=== PATIENT | male | born 1945 | race Caucasian/White ===

== ENCOUNTER 2016-09-21 10:46 | Emergency (ER) | payer MEDICARE, OTHER ==
[2016-09-21 11:25] VITALS: BP 120/70
[2016-09-21] MEDS ORDERED: Alum Hydrox/Mag Hydrox/Simeth 30 ML, Lidocaine 2% 15 ML PO ONE ×2 (12:02)
[2016-09-21 12:13] LABS: CHLORIDE,CL 103 mEq/L (98-106); SODIUM,NA 139 mEq/L (136-145)
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
== END 2016-09-21 13:05 | disposition home or self-care (01) ==
LOC: CC.ED 10:46
DX: K21.9 Gastro-esophageal reflux disease without esophagitis (principal); K44.9 Diaphragmatic hernia without obstruction or gangrene; I25.2 Old myocardial infarction; Z95.5 Presence of coronary angioplasty implant and graft; Z95.0 Presence of cardiac pacemaker; Z79.82 Long term (current) use of aspirin; Z79.899 Other long term (current) drug therapy; Z88.0 Allergy status to penicillin
CPT/HCPCS: 36415; 71020; 80048; 81001; 82550; 83615; 83880; 84484; 85025; 86140; 93005; 99285; A9270; 93010

== ENCOUNTER → 2018-08-01 | Day surgery (SDC) | payer MEDICARE, OTHER ==
[~2018-08-01] MED LIST: Propofol 200 MG/20 ML SDV IV ONE
[2018-08-01] MEDS: Lactated Ringers 1,000 ML IV SCH (06:50)
[2018-08-01 08:37] VITALS: BP 103/54
--- NOTE | 2018-08-01 12:06 | OR ---
DATE OF OPERATION: 08/01/2018 PREOPERATIVE DIAGNOSIS: POSITIVE COLOGUARD. POSTOPERATIVE DIAGNOSIS: POSITIVE COLOGUARD. SURGEON: Diony Kumar MD PROCEDURE: DIAGNOSTIC COLONOSCOPY WITH FORCEPS POLYP REMOVAL X2. ANESTHESIA: MAC via SCRAP CHARGER. COMPLICATIONS: None. SPECIMEN: Sessile polyps x2, each 3 mm. FINDINGS: 1. Full-length colonoscopy. 2. Mild sigmoid diverticulosis. 3. Two small sessile polyps. RECOMMENDATIONS: Followup colonoscopy in 5 years. INDICATIONS: The patient had a prior colonoscopy in 2010, declined to have followups for prior polyp removal. He came in and had a positive Cologuard. We proceeded with diagnostic colonoscopy. DESCRIPTION OF PROCEDURE: The patient was prepped and draped, placed in left lateral decubitus position. A lubricated Olympus colonoscope was inserted and easily advanced to the cecum. Direct visualization of the ileocecal valve and appendiceal orifice was accomplished. The bowel prep was adequate. Upon withdrawal of the scope, the cecum appeared benign. Just outside the cecum and the proximal ascending colon, the patient had a small flat sessile polyp approximately 3 mm in size, removed in its entirety with cold forceps. The rest of the ascending and transverse colon were benign. In the sigmoid area, the patient had some scattered diverticular disease to the rectosigmoid junction, mild in severity. Likewise, the descending colon was evaluated thoroughly. At the splenic flexure, there was a 2nd small sessile polyp also approximately 3 mm in size removed with a cold forceps. The rest of the descending colon was benign. The sigmoid colon had scattered diverticula mild in severity to the rectosigmoid junction. No other polyps, masses, ulceration, or bleeding sites were seen. The rectal vault was benign. Retroflexion of the scope in the rectum showed no perianal lesions. Air was suctioned, scope removed without complication. DEA/ZOEY /[id number]
== END ==
LOC: CC.SDS 06:30
PROVIDERS: ATTEND Family Medicine
DX: D12.2 Benign neoplasm of ascending colon (principal); D12.3 Benign neoplasm of transverse colon; K57.30 Diverticulosis of large intestine without perforation or abscess without bleeding; R19.5 Other fecal abnormalities; E11.9 Type 2 diabetes mellitus without complications; I25.5 Ischemic cardiomyopathy; I10 Essential (primary) hypertension; E03.9 Hypothyroidism, unspecified; E78.5 Hyperlipidemia, unspecified; K21.9 Gastro-esophageal reflux disease without esophagitis; N40.0 Benign prostatic hyperplasia without lower urinary tract symptoms; G47.30 Sleep apnea, unspecified; Z88.0 Allergy status to penicillin; Z79.82 Long term (current) use of aspirin; Z79.84 Long term (current) use of oral hypoglycemic drugs; Z79.899 Other long term (current) drug therapy
CPT/HCPCS: 45380; J2704; J7120

== ENCOUNTER 2019-04-29 10:05 | Observation (INO) | payer MEDICARE, OTHER ==
[2019-04-29] MEDS ORDERED: Nitroglycerin 0.4 MG Tab.SL SL PRN (10:13)
[2019-04-29 10:46] LABS: CHLORIDE,CL 102 mEq/L (98-106); SODIUM,NA 136 mEq/L (136-145)
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
[2019-04-29] MEDS ORDERED: Ondansetron 4 MG/2 ML SDV IVPUSH PRN (11:45)
[2019-04-29] MEDS ORDERED: Sodium Chloride 0.9% 10 ML Syringe FLUSH PRN (11:45)
[2019-04-29] MEDS ORDERED: Enoxaparin 40 MG/0.4 ML Syringe SUBCUT SCH (14:00)
[2019-04-29] MEDS: Gabapentin 100 MG Cap PO SCH ×2 (14:22→19:45)
[2019-04-29] MEDS: Carvedilol 6.25 MG Tab PO SCH (17:10)
[2019-04-29] MEDS ORDERED: Tamsulosin 0.4 MG Cap.ER PO SCH (18:00)
[2019-04-29] MEDS ORDERED: atorvaSTATin 10 MG Tab PO SCH (20:00)
[2019-04-29] MEDS ORDERED: Temazepam 15 MG Cap PO PRN (20:00)
[2019-04-29] MEDS ORDERED: metFORMIN 500 MG Tab.ER PO SCH (20:00)
[2019-04-30] MEDS ORDERED: Levothyroxine 50 MCG Tab PO SCH (07:00)
[2019-04-30] MEDS ORDERED: Pantoprazole 40 MG Tab.CR PO SCH (07:30)
[2019-04-30 07:37] LABS: CHLORIDE,CL 102 mEq/L (98-106); SODIUM,NA 137 mEq/L (136-145)
[2019-04-30] MEDS: Carvedilol 6.25 MG Tab PO SCH (07:53)
[2019-04-30] MEDS: Gabapentin 100 MG Cap PO SCH (07:59)
[2019-04-30 08:00] VITALS: BP 125/64; PULSE 64
[2019-04-30] MEDS ORDERED: Aspirin 81 MG Tab.EC PO SCH (08:00)
[2019-04-30] MEDS ORDERED: metFORMIN 500 MG Tab.ER PO SCH (08:00)
[2019-04-30] MEDS ORDERED: Furosemide 20 MG Tab PO SCH (08:00)
[2019-04-30] MEDS ORDERED: Amiodarone 200 MG Tab PO SCH (08:00)
[2019-04-30] MEDS ORDERED: TOLTERODINE TARTRATE 4 MG PO SCH (08:00)
--- NOTE | 2019-04-30 21:51 | PCM.DCSUM1 ---
Discharge Summary - Hospital Course Free Text/Narrative:: Bernardino is a 74 year old male who presents to ER with complaints of dizziness, balance issues. Awoke this am and felt he was leaning to the left, balance off , difficult to walk. He felt very dizzy. Did have emesis approximately 30 minutes later. No notable weakness in arms or legs, felt to have slurred speech but family did not note a difference as states normal for him due to his long standing hearing loss and cochlear implant. Neurological exam in ER otherwise normal. CT scan of head was done, negative for acute concern. Labs stable. Troponin negative. Admitted for neurological monitoring, rule out CVA/ TIA. Diagnosis: Stroke: No Modified [place] Scale: No Symptoms at All Modified [place] Scale Score: 0 - Discharge Data Discharge Date: 04/30/19 Discharge Disposition: Home, Self-Care 01 Condition: Stable - Referral to Home Health Primary Care Physician: Diony Kumar MD - Patient Summary/Data Complications: none Hospital Course: Patient is doing well. Denies dizziness this am. Is ambulating well without balance issues today. Had previously been to the chiropractor, had head manipulation and canalith repositioning. No nausea or vomiting. No headache. Labs have remained normal. Neuro checks all normal. Discharge home. Follow up with Dr. Kumar in a week - Patient Instructions Diet: Usual Diet as Tolerated Activity: As Tolerated - Discharge Plan *PRESCRIPTION DRUG MONITORING PROGRAM REVIEWED*: No *COPY OF PRESCRIPTION DRUG MONITORING REPORT IN PATIENT JAGJIT: No Home Medications: Home Meds Amiodarone [Pacerone] 100 mg PO DAILY 10/06/14 [History] Tamsulosin [Flomax] 0.4 mg PO DAILY 10/06/14 [History] Tolterodine Tartrate [Detrol LA] 4 mg PO DAILY 10/06/14 [History] atorvaSTATin [Lipitor] 10 mg PO BEDTIME 10/06/14 [History] carvediloL [Carvedilol] 6.25 mg PO BID 10/06/14 [History] Aspirin [Adult Low Dose Aspirin EC] 162 mg PO DAILY 10/07/14 [History] Furosemide 20 mg PO DAILY 10/07/14 [History] Levothyroxine Sodium [Levoxyl] 50 mcg PO DAILY 05/15/16 [History] Temazepam 15 mg PO DAILY PRN 05/15/16 [History] Gabapentin [Neurontin] 100 mg PO TID 07/29/18 [History] metFORMIN HCl [Metformin HCl ER] 500 mg PO DAILY 07/29/18 [History] Pantoprazole Sodium 40 mg PO DAILY 04/29/19 [History] Patient Handouts: Carbohydrate Counting for Diabetes Mellitus, Adult, Dizziness Forms: ED Department Discharge Referrals: Diony Kumar MD [Primary Care Provider] - (Follow up with Dr. Kumar in one week) - Discharge Summary/Plan Comment DC Time >30 min.: No - General Info Date of Service: 04/30/19 Functional Status: Reports: Pain Controlled, Tolerating Diet, Ambulating - Review of Systems General: Denies: Fever, Weakness, Fatigue, Malaise HEENT: Denies: Sinus Congestion Pulmonary: Denies: Shortness of Breath, Cough Cardiovascular: Denies: Chest Pain, Edema, Lightheadedness Gastrointestinal: Denies: Abdominal Pain, Nausea, Vomiting Genitourinary: Reports: No Symptoms Musculoskeletal: Reports: No Symptoms Skin: Reports: No Symptoms Neurological: Denies: Dizziness - Patient Data Vitals - Most Recent: Last Vital Signs Temp 98.4 F 04/30/19 08:00 Pulse 64 04/30/19 08:00 Resp 16 04/30/19 08:00 BP 125/64 04/30/19 08:00 Pulse Ox 97 04/30/19 08:00 Weight - Most Recent: 238 lb Lab Results - Last 24 hrs: Laboratory Results - last 24 hr 04/30/19 04/30/19 Range/Units 06:45 06:45 WBC 5.9 (5.0-10.0) 10^3/uL RBC 4.79 (4.50-6.00) 10^6/uL Hgb 14.2 (14.0-18.0) g/dL Hct 43.9 (40.0-54.0) % MCV 91.6 (82.0-94.0) fL MCH 29.6 (27.0-32.0) pg MCHC 32.3 L (33.0-38.0) g/dL RDW Coeff of Esther 13.5 (11.0-15.0) % Plt Count 127 L (150-400) 10^3/uL Neut % (Auto) 71.8 (35-85) % Lymph % (Auto) 14.9 (10-55) % Anderson % (Auto) 9.6 (0-16) % Eos % (Auto) 3.2 (0-5) % Baso % (Auto) 0.5 (0-3) % Neut # (Auto) 4.25 (1.80-7.00) 10^3/uL Lymph # (Auto) 0.88 L (1.00-4.80) 10^3/uL Anderson # (Auto) 0.57 (0.00-0.80) 10^3/uL Eos # (Auto) 0.19 (0.00-0.45) 10^3/uL Baso # (Auto) 0.03 10^3/uL Sodium 137 (136-145) mEq/L Potassium 4.1 (3.5-5.0) mEq/L Chloride 102 (98-106) mEq/L Carbon Dioxide 28 (21-32) mmol/L BUN 19 H (7-18) mg/dL Creatinine 1.2 (0.7-1.3) mg/dL Est Cr Clr Drug Dosing 53.19 mL/min Estimated GFR (MDRD) 59 L (>=60) mL/min Glucose 153 H (75-99) mg/dL Calcium 8.5 (8.4-10.1) mg/dL Troponin I < 0.017 (0.00-0.06) ng/mL Med Orders - Current: Current Medications Discontinued Medications Amiodarone HCl (Cordarone) 100 mg PO DAILY [facility] Last Admin: 04/30/19 07:51 Dose: 100 mg Aspirin (Halfprin) 162 mg PO DAILY [facility] Last Admin: 04/30/19 07:59 Dose: 162 mg Atorvastatin Calcium (Lipitor) 10 mg PO BEDTIME [facility] Last Admin: 04/29/19 19:40 Dose: 10 mg Carvedilol (Coreg) 6.25 mg PO BIDMEALS [facility] Last Admin: 04/30/19 07:53 Dose: 6.25 mg Enoxaparin Sodium (Lovenox) 40 mg SUBCUT Q24H [facility] Last Admin: 04/29/19 13:41 Dose: 40 mg Furosemide (Lasix) 20 mg PO DAILY [facility] Last Admin: 04/30/19 07:52 Dose: 20 mg Gabapentin (Neurontin) 100 mg PO TID [facility] Last Admin: 04/30/19 07:59 Dose: 100 mg Levothyroxine Sodium (Synthroid) 50 mcg PO DAILY@0700 [facility] Last Admin: 04/30/19 06:28 Dose: 50 mcg Metformin HCl (Glucophage Xr) 500 mg PO DAILY [facility] Metformin HCl (Glucophage Xr) 500 mg PO BEDTIME [facility] Last Admin: 04/29/19 20:00 Dose: 500 mg Nitroglycerin (Nitrostat) 0.4 mg SL Q5M PRN PRN Reason: Chest Pain Tolterodine Tartrate [Detrol La] 4 Mg Cap 0 mg PO DAILY [facility] Last Admin: 04/30/19 07:51 Dose: 4 mg Ondansetron HCl (Zofran) 4 mg IVPUSH Q4H PRN PRN Reason: Nausea/Vomiting Pantoprazole Sodium (Protonix) 40 mg PO DAILY@0730 [facility] Last Admin: 04/30/19 06:30 Dose: 40 mg Sodium Chloride (Saline Flush) 10 ml FLUSH ASDIRECTED PRN PRN Reason: Keep Vein Open Tamsulosin HCl (Flomax) 0.4 mg PO PCDINNER [facility] Last Admin: 04/29/19 17:09 Dose: 0.4 mg Temazepam (Restoril) 15 mg PO BEDTIME PRN PRN Reason: Insomnia - Exam General: Reports: Alert, Oriented HEENT: Reports: Mucous Membr. Moist/[place] Neck: Reports: Supple Lungs: Reports: Clear to Auscultation, Normal Respiratory Effort Cardiovascular: Reports: Regular Rate, Regular Rhythm GI/Abdominal Exam: Normal Bowel Sounds, Soft, Non-Tender Extremities: Normal Inspection, No Pedal Edema Skin: Reports: Warm, Dry Neurological: Reports: No New Focal Deficit
== END 2019-04-30 08:30 | disposition home or self-care (01) ==
LOC: CC.ED 10:05 → INTOOBSV 11:14 → CC.MS 11:14 → OBSVTOIN 11:14 → CC.MS 11:15 → UNDOADMOB 11:15
PROVIDERS: ADMIT Physician Assistant Medical; ATTEND Family Medicine
DX: R42 Dizziness and giddiness (principal); R26.89 Other abnormalities of gait and mobility; R11.10 Vomiting, unspecified; E11.9 Type 2 diabetes mellitus without complications; Z88.0 Allergy status to penicillin; Z79.82 Long term (current) use of aspirin; Z79.84 Long term (current) use of oral hypoglycemic drugs; Z79.899 Other long term (current) drug therapy
CPT/HCPCS: 36415; 70450; 71046; 80048; 80053; 82550; 83615; 83690; 84484; 85025; 85610; 85730; 93005; 96372; 99285-25; A9270-GY; G0378; J1650

== ENCOUNTER 2021-12-09 10:28 | Emergency (ER) | payer MEDICARE, OTHER ==
[2021-12-09 10:31] VITALS: BP 121/62; PULSE 70
== END 2021-12-09 10:52 | disposition home or self-care (01) ==
LOC: CC.ED 10:28
DX: J06.9 Acute upper respiratory infection, unspecified (principal); E11.9 Type 2 diabetes mellitus without complications; I25.2 Old myocardial infarction; Z95.0 Presence of cardiac pacemaker; Z79.82 Long term (current) use of aspirin; Z79.84 Long term (current) use of oral hypoglycemic drugs; Z79.899 Other long term (current) drug therapy
CPT/HCPCS: 99283

== ENCOUNTER 2023-07-26 06:40 | Day surgery (SDC) | payer MEDICARE, OTHER ==
[2023-07-26] MEDS: Lactated Ringers 1,000 ML IV SCH (07:02)
[2023-07-26] MEDS ORDERED: fentaNYL 50 MCG/ML SDV ONE (07:25)
[2023-07-26] MEDS ORDERED: Ketamine 200 MG/20 ML MDV ONE (07:25)
[2023-07-26] MEDS ORDERED: Etomidate 2 MG/ML 10 ML SDV ONE (07:25)
[2023-07-26] MEDS ORDERED: Propofol 200 MG/20 ML SDV ONE (07:25)
[2023-07-26] MEDS ORDERED: Midazolam 1 MG/ML 2 ML SDV ONE (07:25)
[2023-07-26 08:46] VITALS: BP 114/59; PULSE 61
== END 2023-07-26 08:45 | disposition home or self-care (01) ==
LOC: CC.SDS 06:40
PROVIDERS: ATTEND Family Medicine
DX: K57.30 Diverticulosis of large intestine without perforation or abscess without bleeding (principal); K64.8 Other hemorrhoids; E11.9 Type 2 diabetes mellitus without complications; K21.9 Gastro-esophageal reflux disease without esophagitis; E78.00 Pure hypercholesterolemia, unspecified; N40.1 Benign prostatic hyperplasia with lower urinary tract symptoms; E03.9 Hypothyroidism, unspecified; R35.1 Nocturia; I25.5 Ischemic cardiomyopathy; G47.30 Sleep apnea, unspecified; Z79.82 Long term (current) use of aspirin; Z79.890 Hormone replacement therapy; Z79.84 Long term (current) use of oral hypoglycemic drugs; Z79.899 Other long term (current) drug therapy
CPT/HCPCS: 45378; J7120; 00811; 99100; J2250; J2704; J3010; J3490

== ENCOUNTER 2023-08-27 21:38 | Observation (INO) | payer MEDICARE, OTHER ==
[2023-08-27 20:43] LABS: BASOPHILS ABSOLUTE AUTO 0.02 10^3/uL (0.00-0.50); BASOPHILS PERCENT AUTO 0.3 % (0-1); EOSINOPHILS ABSOLUTE AUTO 0.24 10^3/uL (0.00-1.50); EOSINOPHILS PERCENT AUTO 3.9 % (0-6); HEMOGLOBIN 14.5 g/dL (14.0-18.0); IMMATURE GRAN ABSOLUTE AUTO 0.02 10^3/uL (0.00-0.49); IMMATURE GRAN PERCENT AUTO 0.3 % (0.0-4.9); LYMPHOCYTES ABSOLUTE AUTO 0.67 10^3/uL (0.60-5.00); LYMPHOCYTES PERCENT AUTO 10.8 % (24-44); MEAN CORPUSCULAR HEMOGLOBIN 30.1 pg (27.0-32.0); MEAN CORPUSCULAR HGB CONC 32.2 g/dL (32.0-36.0); MEAN CORPUSCULAR VOLUME 93.4 fL (83.0-97.0); MONOCYTES ABSOLUTE AUTO 0.48 10^3/uL (0.00-1.50); MONOCYTES PERCENT AUTO 7.7 % (0-10); NEUTROPHILS ABSOLUTE AUTO 4.79 x10^3/uL (1.80-8.00); PLATELET COUNT,PLT 106 10^3/uL (150-400); RED BLOOD CELL COUNT 4.82 x10^6/uL (4.50-6.00); WHITE BLOOD CELL COUNT,WBC 6.2 10^3/uL (4.0-11.0)
[2023-08-27] MEDS: Sodium Chloride 0.9% 1,000 ML IV SCH (20:44)
[2023-08-27 20:56] LABS: ALANINE AMINOTRANSFERASE,ALT 19 U/L (12-78); ALBUMIN 3.7 g/dL (3.4-5.0); ALKALINE PHOSPHATASE 86 U/L (46-116); ASPARTATE AMNIOTRANSFERASE,AST 20 U/L (15-37); BILIRUBIN TOTAL 0.5 mg/dL (0.0-1.0); BLOOD UREA NITROGEN,BUN 30 mg/dL (7-18); CALCIUM 8.7 mg/dL (8.4-10.1); CARBON DIOXIDE,CO2 28 mmol/L (21-32); CHLORIDE,CL 102 mEq/L (98-106); CREATININE 1.7 mg/dL (0.7-1.3); GLUCOSE RANDOM 203 mg/dL (75-99); LIPASE 46 U/L (16-77); POTASSIUM,K 4.3 mEq/L (3.5-5.0); PROTEIN TOTAL,TP 6.7 g/dL (6.4-8.2); SODIUM,NA 140 mEq/L (136-145)
[2023-08-27 20:57] LABS: ESTIMATED GFR 41 mL/min (>=60)
[2023-08-27] MEDS ORDERED: Ondansetron 4 MG Tab.DIS PO PRN (22:36)
[2023-08-27] MEDS ORDERED: Non-Formulary Medication 1 Each (Cetirizine [Zyrtec] 10 MG Tablet) PO PRN (22:36)
[2023-08-27] MEDS ORDERED: Ondansetron 4 MG/2 ML SDV IV PRN (22:36)
[2023-08-27] MEDS ORDERED: Temazepam 15 MG Cap PO PRN ×2 (22:36→23:18)
[2023-08-27] MEDS ORDERED: Loratadine 10 MG Tab PO PRN (23:09)
[2023-08-27] MEDS: Meclizine 12.5 MG Tab PO SCH (23:19)
[2023-08-28] MEDS: ACETAMINOPHEN 650 MG PO SCH (00:18)
[2023-08-28] MEDS: Sodium Chloride 0.9% 1,000 ML IV SCH (01:20)
[2023-08-28] MEDS: Pantoprazole 40 MG Tab.CR PO SCH (06:07)
[2023-08-28 06:54] LABS: APPEARANCE,URINE CLEAR (CLEAR); BILIRUBIN,URINE NEGATIVE (NEGATIVE); COLOR,URINE YELLOW (YELLOW); GLUCOSE,URINE 500 mg/dL (NEGATIVE); KETONES,URINE NEGATIVE (NEGATIVE); LEUKOCYTE ESTERASE,URINE NEGATIVE (NEGATIVE); NITRITE,URINE NEGATIVE (NEGATIVE); OCCULT BLOOD,URINE NEGATIVE (NEGATIVE); PROTEIN,URINE NEGATIVE (NEGATIVE); UROBILINOGEN,URINE 0.2 EU/dL (0.2-1.0)
[2023-08-28] MEDS: Amiodarone 200 MG Tab PO SCH (07:28)
[2023-08-28] MEDS: Trospium 20 MG Tab PO SCH (07:29)
[2023-08-28] MEDS: Carvedilol 6.25 MG Tab PO SCH (07:30)
[2023-08-28] MEDS: atorvaSTATin 10 MG Tab PO SCH (07:31)
[2023-08-28] MEDS: Furosemide 20 MG Tab PO SCH (07:31)
[2023-08-28] MEDS: Meloxicam 7.5 MG Tab PO SCH (07:31)
[2023-08-28] MEDS: Tamsulosin 0.4 MG Cap.ER PO SCH (07:31)
[2023-08-28] MEDS: Levothyroxine 50 MCG Tab PO SCH (07:32)
[2023-08-28] MEDS: Aspirin 81 MG Tab.EC PO SCH (07:32)
[2023-08-28 07:34] VITALS: BP 115/61
[2023-08-28 07:35] VITALS: PULSE 65
[2023-08-28 07:45] LABS: ALBUMIN 2.9 g/dL (3.4-5.0); BILIRUBIN TOTAL 0.7 mg/dL (0.0-1.0); CALCIUM 8.3 mg/dL (8.4-10.1); CREATININE 1.2 mg/dL (0.7-1.3); EST CRCL DRUG DOSING (CG) 51.54 mL/min; POTASSIUM,K 4.1 mEq/L (3.5-5.0); PROTEIN TOTAL,TP 5.6 g/dL (6.4-8.2)
[2023-08-28] MEDS ORDERED: Non-Formulary Medication 1 Each (Meloxicam [Meloxicam] 15 MG Tablet) PO SCH (08:00)
[2023-08-28] MEDS ORDERED: Trospium 20 MG Tab PO SCH (08:00)
[2023-08-28] MEDS ORDERED: Furosemide 20 MG Tab PO SCH (08:00)
[2023-08-28] MEDS ORDERED: AMIODARONE 100 MG PO SCH (08:00)
[2023-08-28] MEDS ORDERED: Non-Formulary Medication 1 Each (Empagliflozin [Jardiance] 10 MG Tablet) PO SCH ×2 (08:00)
[2023-08-28] MEDS ORDERED: Non-Formulary Medication 1 Each (Ubidecarenone [Co Q-10] 100 MG Capsule) PO SCH ×2 (08:00)
[2023-08-28] MEDS: metFORMIN 500 MG Tab PO SCH (08:56)
[2023-08-28 09:04] LABS: BASOPHILS PERCENT AUTO 0.4 % (0-1); HEMATOCRIT 41.7 % (42.0-52.0); HEMOGLOBIN 13.3 g/dL (14.0-18.0); IMMATURE GRAN PERCENT AUTO 0.2 % (0.0-4.9); LYMPHOCYTES ABSOLUTE AUTO 0.71 10^3/uL (0.60-5.00); LYMPHOCYTES PERCENT AUTO 14.2 % (24-44); MEAN CORPUSCULAR VOLUME 94.1 fL (83.0-97.0); MONOCYTES PERCENT AUTO 10.2 % (0-10); NEUTROPHILS ABSOLUTE AUTO 3.55 x10^3/uL (1.80-8.00); PLATELET COUNT,PLT 105 10^3/uL (150-400); RED BLOOD CELL COUNT 4.43 x10^6/uL (4.50-6.00)
[2023-08-28 09:05] LABS: BASOPHILS ABSOLUTE AUTO 0.02 10^3/uL (0.00-0.50); IMMATURE GRAN ABSOLUTE AUTO 0.01 10^3/uL (0.00-0.49); MONOCYTES ABSOLUTE AUTO 0.51 10^3/uL (0.00-1.50)
[2023-08-28 09:06] LABS: MEAN CORPUSCULAR HGB CONC 31.9 g/dL (32.0-36.0)
[2023-08-28] MEDS ORDERED: Acetaminophen 500 MG Tab PO SCH (20:00)
[2023-08-28] MEDS ORDERED: Non-Formulary Medication 1 Each (Melatonin [Melatonin] 5 MG Tablet) PO SCH (20:00)
[2023-08-28] MEDS ORDERED: Non-Formulary Medication 1 Each (Metformin Hcl [Metformin Hcl Er] 500 MG Tab.Sr.24h) PO SCH (20:00)
[2023-08-28] MEDS ORDERED: Melatonin 3 MG Tab PO SCH (20:00)
== END 2023-08-28 12:26 | disposition home or self-care (01) ==
LOC: CC.ED 21:38 → UNDOADMOB 22:10 → CC.MS 22:10
PROVIDERS: ADMIT Physician Assistant Medical; ATTEND Physician Assistant Medical
DX: R42 Dizziness and giddiness (principal); R11.0 Nausea; E86.0 Dehydration; E11.9 Type 2 diabetes mellitus without complications; Z79.82 Long term (current) use of aspirin; Z79.899 Other long term (current) drug therapy; Z79.84 Long term (current) use of oral hypoglycemic drugs
CPT/HCPCS: 36415; 70450; 71046; 80053; 81003; 83690; 84484; 85025; 93005; 96360; 96361; 97161; 99285; A9270; J7030; G0378